=== PATIENT | female | born 1940 | race Caucasian/White ===

== ENCOUNTER → 2018-08-21 | Outpatient (REF) | payer MEDICARE ==
[~2018-08-21] MED LIST: AMOXICILLIN875 MG PO; AUGMENTIN875TAB OR; BETAXOLOL PO; CIPRODEX1 ML AS; CIPROFLOXACN500 MG PO; CITALOPRAM20 MG PO; CORTISPORIN OTI10 M2 AD; CORTISPORIN11 AS; DOXYCYCL HYC100 MG PO; FAMOTIDINE40 M1 OR; FLEXERIL PO; FLONASE NASAL50 MCG; FLUZONE SPLT1 M1 IM; NAPROSYN500 MG PO; NEOMYCIN/POLYMYXIN/G AS; PENICILLN VK500 MG PO; SIMVASTATIN80 MG PO; ZOSTAVAX IM; [UNRECOGNIZED DRUG - OTHER] AS
== END | disposition home or self-care (01) ==
LOC: MAMMO 08:10
PROVIDERS: ATTEND Internal Medicine
DX: Z12.31 Encounter for screening mammogram for malignant neoplasm of breast (principal)

== ENCOUNTER 2019-01-06 10:17 | Emergency (ER) | payer MEDICARE ==
[~2019-01-06] VITALS: Ht 157.5 cm; Wt 65.0 kg
[2019-01-06] MEDS ORDERED: AMOXICILLIN500 MG PO (10:31)
[2019-01-06] MEDS ORDERED: LORTAB 1010 MG PO (10:31)
[2019-01-06 11:09] VITALS: BP 128/66
== END 2019-01-06 11:09 | disposition home or self-care (01) ==
LOC: ED 10:17
DX: K04.7 Periapical abscess without sinus (principal); I48.91 Unspecified atrial fibrillation